=== PATIENT | female | born 1975 | race Caucasian/White ===

== ENCOUNTER → 2023-07-08 | Outpatient (CLI) | payer MEDICAID ==
--- NOTE | 2023-07-08 11:18 | MR ---
"EXAMINATION TYPE: MR brain wo con DATE OF EXAM: 07/08/2023 COMPARISON: NONE HISTORY: No prior, vision distortion and disorientation intermittent for about a year TECHNIQUE: T1-weighted sagittal, T2, FLAIR, and diffusion axial, and T2 coronal coronal views of the brain are submitted. FINDINGS: There is no evidence of acute ischemia. The ventricles, basal cisterns, and sulci overlying the conv exities are consistent with the patient's age. There is no mass effect. Craniocervical junction maintained. Sella turcica has a normal appearance. Changes of chronic sinusit is with nasal septal deviation. Orbits are symmetric. Partially empty sella turcica. Cerebellar tonsi ls are low-lying in position at the level of the foramen magnum. IMPRESSION: 1. Cerebellar tonsils are low-lying in position. 2. Trace amount of fluid surrounding the optic nerves with empty sella turcica can occasionally be as sociated with increased intracranial pressure\\papilledema. Correlate clinically. 3. Chronic sinusitis. A Yellow level critical message alert has been initiated for Ina Fernandez MD via the [employer] 36 0 | Critical Results System on 07/08/2023 11:10 AM. This message alert has been sent to Ina Fernandez MD via the preferences provided by the clinician for the receipt of Radiology Critical Findings. [facility] [place] [id number]."
== END | disposition home or self-care (01) ==
LOC: RADMRIMAIN 10:18
PROVIDERS: ATTEND Psychiatry & Neurology Neurology
DX: J32.9 Chronic sinusitis, unspecified (principal); H53.19 Other subjective visual disturbances; L56.8 Other specified acute skin changes due to ultraviolet radiation
CPT/HCPCS: 70551